=== PATIENT | female | born 1980 | race Caucasian/White ===

== ENCOUNTER → 2021-01-14 11:08 | Outpatient (BNVA) | payer OTHER, SELFPAY | PROVIDERS: Family Provider Family Medicine; PCP Family Medicine | DX: Z20.822 Contact with and (suspected) exposure to COVID-19 (principal) | CPT/HCPCS: 87635 ==

== ENCOUNTER 2022-07-20 08:06 | Day surgery (SDC) | payer BC, SELFPAY ==
[2022-07-20] VITALS (15 sets, daily range): BP systolic 85–158; BP diastolic 44–85; PULSE 65–100; RESP 13–18; TEMP 36.1–36.6; O2SAT 95–99; BMI 22.9; BMI 23.3
--- NOTE | 2022-07-20 08:30 | ED_ITS ---
Documented by User: MANI Machuca 07/20/22 10:11 HPI - Abdominal Pain General: Chief Complaint: Abdominal Pain Stated Complaint: URQ abd pain Time Seen by Provider: 07/20/22 08:23 Source: patient Mode of arrival: ambulatory Limitations: no limitations History of Present Illness: Patient is a nice 42-year-old female presents to ED today with a complaint of abdominal pain. Patient states she first began noticing discomforts 5 to 6 days ago and states pain was fairly intermittent but states over that course pain has progressively worsened and is now constant. She states yesterday evening pain became unbearable. She describes sensations of nausea but has not had any episodes of emesis. She is not having diarrhea. Admittedly had not had a bowel movement in a few days but did have one this morning that she reports was normal. She states she has been able to eat and drink adequately and states this does not seem to aggravate her symptoms. No fevers. No urinary complaints or flank pains. MD elicited complaint: abdominal pain Pertinent past history: none Onset (ago): day(s) Pain Consistency: constant Location: Periumbilical and RLQ Severity: severe Quality: sharp Radiation: none Migration to: no migration Exacerbating factors: nothing Relieving factors: nothing Associated Symptoms: Reports nausea and other (body aches); Denies change in bowel habits, dysuria, fever(s), hematemesis and vomiting Related Data: Patient : No Review of Systems Const: Reports: body aches; Denies: fever(s), fatigue or malaise Card: Denies: chest pain Resp: Denies: dyspnea GI: Reports: abdominal pain, nausea and other (body aches); Denies: vomiting, hematemesis or change in bowel habits : Denies: flank pain, difficulty voiding, dysuria, urinary frequency or urinary urgency Musc: Denies: neck pain, back pain, extremity pain or joint pain Skin/Breast: Denies: rash Neuro: Denies: headache(s) or dizziness Physical Exam Const: COMMON NORMALS: average body habitus, patient oriented x3, no limitations, healthy appearing, alert and well nourished GENERAL APPEARANCE: cooperative and ill appearing (appears uncomfortable secondary to pain) HENMT: COMMON NORMALS: normocephalic and atraumatic HEAD & SCALP: normal to inspection, normocephalic and atraumatic Chest: COMMONS NORMALS: normal inspection of the chest and normal palpation of entire chest wall Resp: COMMON NORMALS: normal respiratory effort and clear to auscultation bilaterally AUSCULTATION: clear to auscultation bilaterally Cardio: COMMON NORMALS: regular rate and regular rhythm RATE: regular rate RHYTHM: regular rhythm GI: COMMON NORMALS: Normal to inspection, nondistended, normoactive bowel sounds present, Soft to palpation, No hepatosplenomegaly present and no masses INSPECTION: Yes normal to inspection AUSCULTATION: Yes normoactive bowel sounds PALPATION: Yes Soft to palpation, Yes Tenderness to palpation present (GI) (suprapubic/RLQ), Yes Guarding due to palpation present (GI) (RLQ), No Rigid due to palpation and Yes No hepatosplenomegaly present : COMMON NORMALS: Yes no CVA tenderness BLADDER/KIDNEY EXAM: Yes no CVA tenderness Back/Pelvis: COMMON NORMALS: no CVA tenderness Extremity: COMMON NORMALS: normal to inspection GENERAL: Yes normal exam except as noted Neuro: BRODIE COMA SCALE: document GCS findings Brodie coma scale eye opening: Spontaneous [place] coma scale verbal response: Orientated [place] coma scale motor response: Obey commands Bro[place] coma scale total score: 15 COMMON NORMALS: patient oriented x3 SENSORIUM/ORIENTATION: Yes alert Skin: COMMON NORMALS: no rashes or lesions noted GENERAL SKIN EXAM: no rashes or lesions noted Course Consultations: Consultation #1: Dr. Acosta-recommends admit to obs under his service Vital Signs: Vital signs: Vital Signs Temperature 97.9 F 07/20/22 08:21 Pulse Rate 77 07/20/22 09:12 Respiratory Rate 16 07/20/22 08:59 Blood Pressure 119/69 07/20/22 09:12 Pulse Oximetry 99 07/20/22 09:12 Oxygen Delivery Me thod Room Air 07/20/22 09:12 MDM - Abdominal Pain Medical Decision Making Patient is a nice 42-year-old female here for progressively worsening lower abdominal pains with nausea. Her vital signs are stable. Blood work shows a white count of 11.7. Remainder of labs are fairly unremarkable. CT scan showing acute appendicitis without rupture. I spoke to Dr. Acosta who recommends admit to obs under his service. IV Zosyn has been initiated. Dr. Membreno aware of patient and will write admit orders. Lab Data 07/20/22 08:45 07/20/22 08:45 Labs/Radiology: Radiology Impressions Abdomen/Pelvis CT 07/20/22 08:35 IMPRESSION: 1. Acute appendicitis without rupture. Significant dilatation of the appendix to 1.5 cm. 2. Small amount of free fluid in the pelvis. May be reactive or physiologic. Notified MANI Machuca at 07/20/2022 9:53 AM. Not available. Laboratory Results WBC 11.7 10^3/uL (4.0-10.0) H 07/20/22 08:45 RBC 4.92 10^6/uL (4.1-5.3) 07/20/22 08:45 Hgb 14.4 g/dL (11.5-15.3) 07/20/22 08:45 Hct 43.4 % (37.0-47.0) 07/20/22 08:45 MCV 88.2 fl (81-99) 07/20/22 08:45 MCH 29.3 pg (28.0-34.0) 07/20/22 08:45 MCHC 33.2 g/dL (30.0-36.0) 07/20/22 08:45 RDW 12.9 % (12.1-15.1) 07/20/22 08:45 Plt Count 294 10^3/cmm (130-400) 07/20/22 08:45 MPV 10.8 fL (7.4-10.4) H 07/20/22 08:45 Neut % (Auto) 82.7 % 07/20/22 08:45 Lymph % (Auto) 10.8 % 07/20/22 08:45 [place] % (Auto) 5.1 % 07/20/22 08:45 Eos % (Auto) 0.9 % 07/20/22 08:45 Baso % (Auto) 0.2 % 07/20/22 08:45 Neut # (Auto) 9.68 10^3/uL (1.8-7.7) H 07/20/22 08:45 Lymph # (Auto) 1.3 10^3/uL (0.8-4.8) 07/20/22 08:45 [place] # (Auto) 0.6 10^3/uL (0.2-0.9) 07/20/22 08:45 Eos # (Auto) 0.1 10^3/uL (0.0-0.8) 07/20/22 08:45 Baso # (Auto) 0.0 10^3/uL (0.0-0.1) 07/20/22 08:45 Nucleated RBC % (auto) 0 % 07/20/22 08:45 Nucleated RBCs # 0.0 /100WBC 07/20/22 08:45 Sodium 134 mmol/L (136-145) L 07/20/22 08:45 Potassium 4.3 mmol/L (3.5-5.1) 07/20/22 08:45 Chloride 100 mmol/L (98-107) 07/20/22 08:45 Carbon Dioxide 22 mmol/L (22-29) 07/20/22 08:45 Anion Gap 16.3 (5-19) 07/20/22 08:45 BUN 7 mg/dL (6-20) 07/20/22 08:45 Creatinine 0.7 mg/dL (0.5-0.9) 07/20/22 08:45 GFR Calculation 92.2 mL/min (90-130) 07/20/22 08:45 Glucose 97 mg/dL (65-115) 07/20/22 08:45 Calculated Osmolality 276 mOsm/kg (285-295) L 07/20/22 08:45 Calcium 8.7 mg/dL (8.5-10.5) 07/20/22 08:45 Total Bilirubin 0.8 mg/dL (0.15-1.2) 07/20/22 08:45 AST 13 U/L (0-32) 07/20/22 08:45 ALT 11 U/L (0-33) 07/20/22 08:45 Alkaline Phosphatase 51 U/L (35-105) 07/20/22 08:45 Total Protein 7.4 g/dL (6.6-8.7) 07/20/22 08:45 Albumin 4.2 g/dL (3.5-5.2) 07/20/22 08:45 Globulin 3.2 g/dL (1.3-4.6) 07/20/22 08:45 Lipase 28 U/L (13-60) 07/20/22 08:45 HCG, Qual Negative (Negative) 07/20/22 08:45 Urine Color Yellow (Yellow) 07/20/22 08:40 Urine Appearance Clear (CLEAR) 07/20/22 08:40 Urine pH 6 (5-7) 07/20/22 08:40 Ur Specific [place] 1.025 (1.005-1.030) 07/20/22 08:40 Urine Protein Neg (Negative) 07/20/22 08:40 Urine Glucose (UA) Norm (Normal) 07/20/22 08:40 Urine Ketones Negative (Negative) 07/20/22 08:40 Urine Blood 3+ (Negative) H 07/20/22 08:40 Urine Nitrate Negative (Negative) 07/20/22 08:40 Urine Bilirubin Neg (Negative) 07/20/22 08:40 Urine Urobilinogen Norm mg/dL (Negative) 07/20/22 08:40 Ur Leukocyte Esterase Negative (Negative) 07/20/22 08:40 Urine RBC 5-10 /hpf (0-2) H 07/20/22 08:40 Urine WBC Rare /hpf (0-5) 07/20/22 08:40 Ur Squamous Epith Cells 5-10 /hpf (0-5) H 07/20/22 08:40 Amorphous Sediment Not Reportable 07/20/22 08:40 Urine Bacteria 1+ /hpf (NONE) H 07/20/22 08:40 Discharge Plan Discharge Patient Disposition: Placed in Observation Clinical Impression: Acute appendicitis Qualifiers: Acute appendicitis type: with localized peritonitis Appendicitis gangrene presence: without gangrene Appendicitis perforation presence: without perforation Appendicitis abscess presence: without abscess Qualified Code(s): K35.30 - Acute appendicitis with localized peritonitis, without perforation or gangrene Coding Level of Care Code ED Mechanical Inspector for Chg Fwd Documented by User: Damian Membreno DO 07/20/22 10:25 HPI - Abdominal Pain General: Chief Complaint: Abdominal Pain Stated Complaint: URQ abd pain Time Seen by Provider: 07/20/22 08:23 Physical Exam Neuro: BRODIE COMA SCALE: document GCS findings [place] coma scale total score: 15 Course Vital Signs: Vital signs: Vital Signs Temperature 97.9 F 07/20/22 08:21 Pulse Rate 77 07/20/22 09:12 Respiratory Rate 16 07/20/22 08:59 Blood Pressure 119/69 07/20/22 09:12 Pulse Oximetry 99 07/20/22 09:12 Oxygen Delivery Me thod Room Air 07/20/22 09:12 MDM - Abdominal Pain Medical Decision Making Patient is a nice 42-year-old female here for progressively worsening lower abdominal pains with nausea. Her vital signs are stable. Blood work shows a white count of 11.7. Remainder of labs are fairly unremarkable. CT scan showing acute appendicitis without rupture. I spoke to Dr. Acosta who recommends admit to obs under his service. IV Zosyn has been initiated. Dr. Membreno aware of patient and will write admit orders. Chart reviewed and patient discussed with midlevel. Agree with assessment and plan. Medical Records I reviewed the patient's medical records. Lab Data I reviewed the patient's lab results. 07/20/22 08:45 07/20/22 08:45 Labs/Radiology: Radiology Impressions Abdomen/Pelvis CT 07/20/22 08:35 IMPRESSION: 1. Acute appendicitis without rupture. Significant dilatation of the appendix to 1.5 cm. 2. Small amount of free fluid in the pelvis. May be reactive or physiologic. Notified MANI Machuca at 07/20/2022 9:53 AM. Not available. Laboratory Results WBC 11.7 10^3/uL (4.0-10.0) H 07/20/22 08:45 RBC 4.92 10^6/uL (4.1-5.3) 07/20/22 08:45 Hgb 14.4 g/dL (11.5-15.3) 07/20/22 08:45 Hct 43.4 % (37.0-47.0) 07/20/22 08:45 MCV 88.2 fl (81-99) 07/20/22 08:45 MCH 29.3 pg (28.0-34.0) 07/20/22 08:45 MCHC 33.2 g/dL (30.0-36.0) 07/20/22 08:45 RDW 12.9 % (12.1-15.1) 07/20/22 08:45 Plt Count 294 10^3/cmm (130-400) 07/20/22 08:45 MPV 10.8 fL (7.4-10.4) H 07/20/22 08:45 Neut % (Auto) 82.7 % 07/20/22 08:45 Lymph % (Auto) 10.8 % 07/20/22 08:45 [place] % (Auto) 5.1 % 07/20/22 08:45 Eos % (Auto) 0.9 % 07/20/22 08:45 Baso % (Auto) 0.2 % 07/20/22 08:45 Neut # (Auto) 9.68 10^3/uL (1.8-7.7) H 07/20/22 08:45 Lymph # (Auto) 1.3 10^3/uL (0.8-4.8) 07/20/22 08:45 [place] # (Auto) 0.6 10^3/uL (0.2-0.9) 07/20/22 08:45 Eos # (Auto) 0.1 10^3/uL (0.0-0.8) 07/20/22 08:45 Baso # (Auto) 0.0 10^3/uL (0.0-0.1) 07/20/22 08:45 Nucleated RBC % (auto) 0 % 07/20/22 08:45 Nucleated RBCs # 0.0 /100WBC 07/20/22 08:45 Sodium 134 mmol/L (136-145) L 07/20/22 08:45 Potassium 4.3 mmol/L (3.5-5.1) 07/20/22 08:45 Chloride 100 mmol/L (98-107) 07/20/22 08:45 Carbon Dioxide 22 mmol/L (22-29) 07/20/22 08:45 Anion Gap 16.3 (5-19) 07/20/22 08:45 BUN 7 mg/dL (6-20) 07/20/22 08:45 Creatinine 0.7 mg/dL (0.5-0.9) 07/20/22 08:45 GFR Calculation 92.2 mL/min (90-130) 07/20/22 08:45 Glucose 97 mg/dL (65-115) 07/20/22 08:45 Calculated Osmolality 276 mOsm/kg (285-295) L 07/20/22 08:45 Calcium 8.7 mg/dL (8.5-10.5) 07/20/22 08:45 Total Bilirubin 0.8 mg/dL (0.15-1.2) 07/20/22 08:45 AST 13 U/L (0-32) 07/20/22 08:45 ALT 11 U/L (0-33) 07/20/22 08:45 Alkaline Phosphatase 51 U/L (35-105) 07/20/22 08:45 Total Protein 7.4 g/dL (6.6-8.7) 07/20/22 08:45 Albumin 4.2 g/dL (3.5-5.2) 07/20/22 08:45 Globulin 3.2 g/dL (1.3-4.6) 07/20/22 08:45 Lipase 28 U/L (13-60) 07/20/22 08:45 HCG, Qual Negative (Negative) 07/20/22 08:45 Urine Color Yellow (Yellow) 07/20/22 08:40 Urine Appearance Clear (CLEAR) 07/20/22 08:40 Urine pH 6 (5-7) 07/20/22 08:40 Ur Specific [place] 1.025 (1.005-1.030) 07/20/22 08:40 Urine Protein Neg (Negative) 07/20/22 08:40 Urine Glucose (UA) Norm (Normal) 07/20/22 08:40 Urine Ketones Negative (Negative) 07/20/22 08:40 Urine Blood 3+ (Negative) H 07/20/22 08:40 Urine Nitrate Negative (Negative) 07/20/22 08:40 Urine Bilirubin Neg (Negative) 07/20/22 08:40 Urine Urobilinogen Norm mg/dL (Negative) 07/20/22 08:40 Ur Leukocyte Esterase Negative (Negative) 07/20/22 08:40 Urine RBC 5-10 /hpf (0-2) H 07/20/22 08:40 Urine WBC Rare /hpf (0-5) 07/20/22 08:40 Ur Squamous Epith Cells 5-10 /hpf (0-5) H 07/20/22 08:40 Amorphous Sediment Not Reportable 07/20/22 08:40 Urine Bacteria 1+ /hpf (NONE) H 07/20/22 08:40 Discharge Plan Discharge Patient Disposition: Placed in Observation Clinical Impression: Acute appendicitis Qualifiers: Acute appendicitis type: with localized peritonitis Appendicitis gangrene presence: without gangrene Appendicitis perforation presence: without perforation Appendicitis abscess presence: without abscess Qualified Code(s): K35.30 - Acute appendicitis with localized peritonitis, without perforation or gangrene Coding Level of Care Code ED Mechanical Inspector for Francie Tapia
--- NOTE | 2022-07-20 08:35 | CT_ITS ---
WS: [id number] CT ABDOMEN AND PELVIS WITH CONTRAST HISTORY: suprapubic/RLQ abdominal pain, nausea TECHNIQUE: Imaging performed of the abdomen and pelvis with IV contrast. Single phase imaging of the abdomen. Coronal and sagittal reformats are submitted. All CT scans at [facility] use at [address] one of these dose optimization techniques: automated exposure control; mA and/or kV adjustment per patient size (includes targeted exams where dose is matched to clinical indication); or iterative re construction. IV CONTRAST: Omnipaque 350; 100 mL IV. Oral contrast: Yes. DLP: 430.22 mGy.cm COMPARISON: None available. Lower thorax: Lung bases are clear. Heart is normal size. No hiatal hernia. Liver/biliary system: Normal size with no intrahepatic dilatation. Gallbladder: Normal. No gallstones or wall thickening. No pericholecystic fluid. Pancreas: Normal size pancreas and pancreatic duct. No adjacent inflammation. Spleen: Normal size spleen with several granulomata. Adrenal glands: Normal. Right kidney: Normal size RIGHT kidney. Scattered too small to characterize hypodensities. No obstruc tion. Left kidney: Normal size kidney. Scattered too small to characterize hypodensities. No obstruction. Aorta: Normal. Lymphadenopathy: None. Free fluid: Small amount of free fluid in the cul-de-sac and pelvis. GI tract: Inflammatory process in the RIGHT lower quadrant. Appendix is dilated with hyperemia measur ing 1.5 cm in diameter. No rupture at this time. Small amount of inflammation extends into the base o f the appendix and cecum. There are a few scattered diverticula in the distal colon. Abdominal wall: Fat containing umbilical hernia. Pelvis: Physiologic free fluid. Midline uterus is normal. Bones: Unremarkable. CT/CT abdomen pelvis w con* [id number] IMPRESSION: 1. Acute appendicitis without rupture. Significant dilatation of the appendix to 1.5 cm. 2. Small amount of free fluid in the pelvis. May be reactive or physiologic. Notified MANI Machuca at 07/20/2022 9:53 AM. Not available.
[2022-07-20 08:55] LABS: Basophils % 0.2 %; Eosinophils # 0.1 10^3/uL (0.0-0.8); Eosinophils % 0.9 %; Hematocrit 43.4 % (37.0-47.0); Hemoglobin 14.4 g/dL (11.5-15.3); Lymphocytes # 1.3 10^3/uL (0.8-4.8); Lymphocytes % 10.8 %; Mean Corpuscular HGB Conc 33.2 g/dL (30.0-36.0); Mean Corpuscular Hemoglobin 29.3 pg (28.0-34.0); Mean Corpuscular Volume 88.2 fl (81-99); Mean Platelet Volume 10.8 fL (7.4-10.4); Monocytes # 0.6 10^3/uL (0.2-0.9); Monocytes % 5.1 %; Neutrophils # 9.68 10^3/uL (1.8-7.7); Neutrophils % 82.7 %; Nucleated Red Blood Cells % 0 %; Platelet Count 294 10^3/cmm (130-400); Red Blood Count 4.92 10^6/uL (4.1-5.3); Red Cell Distribution Width 12.9 % (12.1-15.1); White Blood Count 11.7 10^3/uL (4.0-10.0)
[2022-07-20] MEDS: sodium chloride 0.9% 1,000 ML 999 ML IV (08:58)
[2022-07-20] MEDS: ondansetron 2 mg/ML SDV 2 mL 4 MG IVP (08:59)
[2022-07-20] MEDS: morphine 4 mg/mL SDV 1 mL IVP (08:59)
[2022-07-20 09:06] LABS: HCG, Serum Qual Negative (Negative)
[2022-07-20 09:13] LABS: Alanine Aminotransferase 11 U/L (0-33); Albumin Level 4.2 g/dL (3.5-5.2); Alkaline Phosphatase 51 U/L (35-105); Anion Gap 16.3 (5-19); Aspartate Amino Transferase 13 U/L (0-32); Blood Urea Nitrogen 7 mg/dL (6-20); Calcium 8.7 mg/dL (8.5-10.5); Carbon Dioxide 22 mmol/L (22-29); Chloride 100 mmol/L (98-107); Creatinine Clr Calc Pharmacy 99.5127; Globulin 3.2 g/dL (1.3-4.6); Glomerular Filtration Rate 92.2 mL/min (90-130); Glucose 97 mg/dL (65-115); Lipase 28 U/L (13-60); Osmolality Calculated 276 mOsm/kg (285-295); Potassium 4.3 mmol/L (3.5-5.1); Sodium 134 mmol/L (136-145); Total Bilirubin 0.8 mg/dL (0.15-1.2); Total Protein 7.4 g/dL (6.6-8.7)
[2022-07-20 09:14] LABS: Bilirubin Urine Neg (Negative); Blood Urine 3+ (Negative); Glucose Urine UA Norm (Normal); Ketones Urine Negative (Negative); Leukocyte Esterase Urine Negative (Negative); Nitrate Urine Negative (Negative); Protein Urine Neg (Negative); Specific Gravity, Urine 1.025 (1.005-1.030); Urine Appearance Clear (CLEAR); Urine Color Yellow (Yellow); Urobilinogen Urine Norm (Negative); pH Urine 6 (5-7)
[2022-07-20 09:15] LABS: Add Urine Culture? No; Add Urine Microscopic? YES; Bacteria Urine 1+ /hpf; WBC Urine RARE /hpf (0-5)
[2022-07-20] MEDS: iohexol 350 mg/mL 500 mL Btl (per mL) IV (09:36)
--- NOTE | 2022-07-20 10:28 | PC.NURSE ---
PT WAS ORDERED MORPHINE 4MG FOR PAIN CONTROL. WHILE PUSHING THE MORPHINE, PT STATED THAT SHE FELT LIKE SHE DID NOT NEED ANYMORE. I CLARIFIED THAT THE PATIENT DID NOT WANT THE REST OF THE MORPHINE. PT WAS GIVEN 2MG MORPHINE AND THE REST WAS WASTED IN THE SHARPS CONTAINER BY THE MED PREP AREA.
[2022-07-20] MEDS: piperacillin-tazobactam 3.375 GM in sodium chloride 0.9% (plus) 50 ML IV (10:44)
[2022-07-20] MEDS: sodium chloride 0.9% 1,000 ML 30 ML IV (10:45)
[2022-07-20] MEDS: scopolamine 1.5 Patch 1 PATCH TRANSDERMA (10:46)
--- NOTE | 2022-07-20 11:03 | P.ANESASSM_ITS ---
Pre-Anesthetic Assessment Height/Weight: Height 1.65 m Weight 63.503 kg Temp Pulse Resp BP Pulse Ox O2 Del Method 97 F L 77 18 134/84 99 Room Air 07/20/22 10:36 07/20/22 10:36 07/20/22 10:36 07/20/22 10:36 07/20/22 10:36 07/20/22 10:36 Operation Date: 07/20/22 14:50 Proposed Procedures p Laparoscopic Appendectomy(Not Applicable) - Deshaun Acosta DO Familial anesthetic complications: none Was Beta Shane taken within 24 hours: N/A Was Clonidine taken within 24 hours: N/A Last intake: Intake Last Liquid Date 07/20/22 Last Liquid Time 07:45 Last Solid Date 07/19/22 Last Solid Time 17:30 Social Tobacco and No alcohol Exam alert, oriented x 3 and regular rate & rhythm Airway Submandibular: within normal limits Cervical ROM: within normal limits Mallampati: Class II Dentition: chipped Pulmonary Chronic Obstructive Pulmonary Disease GI acute appe Anesthetic Plan ASA status: 2 Anesthesia: General Medications/Allergies Home Medications Medication Instructions Recorded Confirmed Last Taken Type No Known Home Medications 01/14/21 07/20/22 Unknown History Allergies Allergy/AdvReac Type Severity Reaction Status Date / Time No Known Allergies Allergy Verified 07/20/22 10:33 Current Medications Generic Name Dose Route Start Last Admin Trade Name Freq PRN Reason Stop Dose Admin Sodium Chloride 1,000 mls @ 30 mls/hr 07/20/22 10:45 07/20/22 10:45 Sodium Chloride 0.9% IV 07/21/22 10:44 30 mls/hr .Q24H QUAN Administration Data Anesthesia 07/20/22 08:45 07/20/22 08:45 Short CBC 07/20/22 Range/Units 08:45 WBC 11.7 H (4.0-10.0) 10^3/uL Hgb 14.4 (11.5-15.3) g/dL Hct 43.4 (37.0-47.0) % MCV 88.2 (81-99) fl Plt Count 294 (130-400) 10^3/cmm Neut % (Auto) 82.7 % Neut # (Auto) 9.68 H (1.8-7.7) 10^3/uL BMP 04/17/23 08:45 Sodium 134 L Potassium 4.3 Chloride 100 Carbon Dioxide 22 BUN 7 Creatinine 0.7 Glucose 97 Calcium 8.7 Liver Function 07/20/22 Range/Units 08:45 Total Bilirubin 0.8 (0.15-1.2) mg/dL AST 13 (0-32) U/L ALT 11 (0-33) U/L Alkaline Phosphatase 51 (35-105) U/L Albumin 4.2 (3.5-5.2) g/dL Urine 07/20/22 Range/Units 08:40 Urine Color Yellow (Yellow) Urine Appearance Clear (CLEAR) Urine pH 6 (5-7) Ur Specific [place] 1.025 (1.005-1.030) Urine Protein Neg (Negative) Urine Glucose (UA) Norm (Normal) Urine Ketones Negative (Negative) Urine Nitrate Negative (Negative) Urine Bilirubin Neg (Negative) Ur Leukocyte Esterase Negative (Negative) Urine RBC 5-10 H (0-2) /hpf Urine WBC Rare (0-5) /hpf Cardiac Studies: No Data to Display
--- NOTE | 2022-07-20 11:11 | P.HP_ITS ---
Providers/Chief Complaint Primary Care Provider: Burton Blake MD Chief Complaint: URQ abd pain History of Present Illness Lyly Byrne is a 42 year old female who presents to the hospital with 1 week history of right lower quadrant abdominal pain. She reports that the pain became sharp and severe last night. Palpation makes pain worse. Nothing makes pain better. Pain does not radiate. She reports nausea but denies any emesis. Denies any diarrhea and/or constipation. CT shows a dilated appendix with appendicitis. Review of Systems General: Reports: 10 or more systems reviewed and unremarkable except in HPI and below Medications/Allergies Home Medications Medication Instructions Recorded Confirmed Last Taken Type No Known Home Medications 01/14/21 07/20/22 Unknown History Allergies Allergy/AdvReac Type Severity Reaction Status Date / Time No Known Allergies Allergy Verified 07/20/22 10:33 PFSH Acute PFSH: Surgical History History of tubal ligation Vitals/I&O/Wt Last Vital Signs Temp 97 F L 07/20/22 10:36 Pulse 77 07/20/22 10:36 Resp 18 07/20/22 10:36 BP 134/84 07/20/22 10:36 Pulse Ox 99 07/20/22 10:36 O2 Del Method Room Air 07/20/22 10:36 Weight last 48 hrs Weight 140 lb Weight 140 lb Physical Exam Narrative: General : Patient is well developed , no acute distress, oriented x3 Head : Normal cephalic, a-traumatic. Ears : Pinnae and external canal are normal. Hearing is normal. Eyes : PERRLA, Sclera and injection are normal. No conjunctival discharge. Nose : Mucous membranes are without erythema. Throat : buccal mucosa is normal, gums are without significant recession or hypertrophy. Lungs : Equal chest rise bilaterally, no use of accessory muscles, trachea is midline. Cor : Rate and rhythm are normal. Abdomen : Soft, ND, tender to palpation right lower quadrant, negative Rovsing's, no g/r/m Extremities : No edema, no cyanosis or clubbing, dorsalis pedis pulses are present bilaterally, non-tender to palpation of calves. Upper extremities are normal bilaterally. Back : non-tender to palpation, no CVA tenderness. Neuro : CN II - XII intact, Upper and lower extremities have equal and full strength okay thank you Data 07/20/22 08:45 07/20/22 08:45 A&P Assessment and plan (1) Acute appendicitis: Qualifiers: Acute appendicitis type: with localized peritonitis Appendicitis abscess presence: without abscess Appendicitis gangrene presence: without gangrene Appendicitis perforation presence: without perforation Qualified Code(s): K35.30 - Acute appendicitis with localized peritonitis, without perfora tion or gangrene Plan Laparoscopic Appendectomy The risks and benefits of the procedure, including but not limited to, bleeding, infection, scar, numbness, pain, damage to surrounding structures, conversion to an open procedure, were explained to the patient. He is understanding of the risks and wishes to proceed. Attestations Medical Necessity Statement*: Patient will require at least 1 night in the hospital for IV antibiotics and recovery after laparoscopic appendectomy Coding Level of Care Code Acute Code for [facility] Diagnoses Acute appendicitis K35.30 Acute appendicitis type: with localized peritonitis Appendicitis abscess presence: without abscess Appendicitis gangrene presence: without gangrene Appendicitis perforation presence: without perforation
--- NOTE | 2022-07-20 12:09 | P.OP_ITS ---
Operative Report Date of procedure: July 20, 2022 Pre-op diagnosis: Acute appendicitis Post-op diagnosis: same Procedure done: Laparoscopic appendectomy Implants: None Specimens removed/disposition: Appendix Surgeon: Dr. Deshaun Acosta DO Anesthesia: General Estimated blood loss (mL): 5 Complications: None apparent Brief History: This is a very pleasant 42-year-old female who presents to the ER with acute appendicitis. Laparoscopic appendectomy was indicated. The risk and benefits were explained and documented. Procedure: Patient was wheeled into the operative room and placed on the OR table in a supine position. Abdomen was inspected prepped and draped in usual sterile fashion. Time-out was performed and all present were in agreement. A 15 blade scalp was used to make a stab incision in the left upper quadrant and intra- abdominal insufflation was achieved using a Veress needle. After localizing the tissue incisions were made and a 12 millimeter trocar was placed into the umbilicus as well as a 5mm in the right lower quadrant and a 5 mm in the left lower quadrant . The appendix was identified and was inflamed. I used the Voyant to ligate the mesoappendix at the base. I then used 2 PDS endo-loops to snare the base of the appendix. I then used the Voyant to ligate the appendix distally. The appendix was removed from the abdomen using an Endo-Catch bag through the umbilical incision. I examined the abdomen and no further pathol ogy was identified. Hemostasis was noted. I then closed the umbilical site with a Marcelino-Marco and 0 Vicryl suture in a figure of 8 fashion. All ports removed. Skin was washed and dried. Incisions were closed with 4 O Vicryl in a subcuticular interrupted fashion. Skin glue was applied. Patient tolerated the procedure well.
--- NOTE | 2022-07-20 12:12 | P.DS_ITS ---
Discharge Providers Date of Discharge: July 20, 2022 Attending Provider at Discharge: Deshaun Acosta DO Primary Care Provider: Burton Blake MD Diagnoses at Discharge Discharge Diagnosis (1) Acute appendicitis: Status: Acute Qualifiers: Acute appendicitis type: with localized peritonitis Appendicitis abscess presence: without abscess Appendicitis gangrene presence: without gangrene Appendicitis perforation presence: without perforation Qualified Code(s): K35.30 - Acute appendicitis with localized peritonitis, without perforation or gangrene Reason for Visit Reason for Visit: URQ abd pain Hospital Course Hospital Course Is a very pleasant 42-year-old female who presented to the emergency room with acute appendicitis. Laparoscopic appendectomy was performed and patient was discharged home from the PACU. Physical Exam Narrative: General : Patient is well developed , no acute distress, oriented x3 Head : Normal cephalic, a-traumatic. Ears : Pinnae and external canal are normal. Hearing is normal. Eyes : PERRLA, Sclera and injection are normal. No conjunctival discharge. Nose : Mucous membranes are without erythema. Throat : buccal mucosa is normal, gums are without significant recession or hypertrophy. Lungs : Equal chest rise bilaterally, no use of accessory muscles, trachea is midline. Cor : Rate and rhythm are normal. Abdomen : Soft, ND, appropriately tender to palpation, no g/r/m Incisions intact without erythema or exudate Extremities : No edema, no cyanosis or clubbing, dorsalis pedis pulses are present bilaterally, non-tender to palpation of calves. Upper extremities are normal bilaterally. Back : non-tender to palpation, no CVA tenderness. Neuro : CN II - XII intact, Upper and lower extremities have equal and full strength Discharge Data Studies Completed and Pending Completed Studies During Hospitalization Category Date Time Status CT abdomen pelvis w con* [id number] Urgent Cat Scan 07/20/22 08:35 Completed Radiology Impressions Abdomen/Pelvis CT 07/20/22 08:35 IMPRESSION: 1. Acute appendicitis without rupture. Significant dilatation of the appendix to 1.5 cm. 2. Small amount of free fluid in the pelvis. May be reactive or physiologic. Notified MANI Machuca at 07/20/2022 9:53 AM. Not available. Laboratory Results WBC 11.7 10^3/uL (4.0-10.0) H 07/20/22 08:45 RBC 4.92 10^6/uL (4.1-5.3) 07/20/22 08:45 Hgb 14.4 g/dL (11.5-15.3) 07/20/22 08:45 Hct 43.4 % (37.0-47.0) 07/20/22 08:45 MCV 88.2 fl (81-99) 07/20/22 08:45 MCH 29.3 pg (28.0-34.0) 07/20/22 08:45 MCHC 33.2 g/dL (30.0-36.0) 07/20/22 08:45 RDW 12.9 % (12.1-15.1) 07/20/22 08:45 Plt Count 294 10^3/cmm (130-400) 07/20/22 08:45 MPV 10.8 fL (7.4-10.4) H 07/20/22 08:45 Neut % (Auto) 82.7 % 07/20/22 08:45 Lymph % (Auto) 10.8 % 07/20/22 08:45 [place] % (Auto) 5.1 % 07/20/22 08:45 Eos % (Auto) 0.9 % 07/20/22 08:45 Baso % (Auto) 0.2 % 07/20/22 08:45 Neut # (Auto) 9.68 10^3/uL (1.8-7.7) H 07/20/22 08:45 Lymph # (Auto) 1.3 10^3/uL (0.8-4.8) 07/20/22 08:45 [place] # (Auto) 0.6 10^3/uL (0.2-0.9) 07/20/22 08:45 Eos # (Auto) 0.1 10^3/uL (0.0-0.8) 07/20/22 08:45 Baso # (Auto) 0.0 10^3/uL (0.0-0.1) 07/20/22 08:45 Nucleated RBC % (auto) 0 % 07/20/22 08:45 Nucleated RBCs # 0.0 /100WBC 07/20/22 08:45 Sodium 134 mmol/L (136-145) L 07/20/22 08:45 Potassium 4.3 mmol/L (3.5-5.1) 07/20/22 08:45 Chloride 100 mmol/L (98-107) 07/20/22 08:45 Carbon Dioxide 22 mmol/L (22-29) 07/20/22 08:45 Anion Gap 16.3 (5-19) 07/20/22 08:45 BUN 7 mg/dL (6-20) 07/20/22 08:45 Creatinine 0.7 mg/dL (0.5-0.9) 07/20/22 08:45 GFR Calculation 92.2 mL/min (90-130) 07/20/22 08:45 Glucose 97 mg/dL (65-115) 07/20/22 08:45 Calculated Osmolality 276 mOsm/kg (285-295) L 07/20/22 08:45 Calcium 8.7 mg/dL (8.5-10.5) 07/20/22 08:45 Total Bilirubin 0.8 mg/dL (0.15-1.2) 07/20/22 08:45 AST 13 U/L (0-32) 07/20/22 08:45 ALT 11 U/L (0-33) 07/20/22 08:45 Alkaline Phosphatase 51 U/L (35-105) 07/20/22 08:45 Total Protein 7.4 g/dL (6.6-8.7) 07/20/22 08:45 Albumin 4.2 g/dL (3.5-5.2) 07/20/22 08:45 Globulin 3.2 g/dL (1.3-4.6) 07/20/22 08:45 Lipase 28 U/L (13-60) 07/20/22 08:45 HCG, Qual Negative (Negative) 07/20/22 08:45 Urine Color Yellow (Yellow) 07/20/22 08:40 Urine Appearance Clear (CLEAR) 07/20/22 08:40 Urine pH 6 (5-7) 07/20/22 08:40 Ur Specific [place] 1.025 (1.005-1.030) 07/20/22 08:40 Urine Protein Neg (Negative) 07/20/22 08:40 Urine Glucose (UA) Norm (Normal) 07/20/22 08:40 Urine Ketones Negative (Negative) 07/20/22 08:40 Urine Blood 3+ (Negative) H 07/20/22 08:40 Urine Nitrate Negative (Negative) 07/20/22 08:40 Urine Bilirubin Neg (Negative) 07/20/22 08:40 Urine Urobilinogen Norm mg/dL (Negative) 07/20/22 08:40 Ur Leukocyte Esterase Negative (Negative) 07/20/22 08:40 Urine RBC 5-10 /hpf (0-2) H 07/20/22 08:40 Urine WBC Rare /hpf (0-5) 07/20/22 08:40 Ur Squamous Epith Cells 5-10 /hpf (0-5) H 07/20/22 08:40 Amorphous Sediment Not Reportable 07/20/22 08:40 Urine Bacteria 1+ /hpf (NONE) H 07/20/22 08:40 Procedures Performed Laparoscopic appendectomy Vitals Last Vital Signs Temp 97 F L 07/20/22 10:36 Pulse 77 07/20/22 10:36 Resp 18 07/20/22 10:36 BP 134/84 07/20/22 10:36 Pulse Ox 99 07/20/22 10:36 O2 Del Method Room Air 07/20/22 10:36 Discharge Plan Discharge Patient Disposition: Home Condition: Stable Prescriptions: New amoxicillin-pot clavulanate 875-125 mg tablet 1 tab PO BID Qty: 20 0RF hydrocodone-acetaminophen 5-325 mg tablet 1 tab PO Q6H PRN (Reason: pain) Qty: 20 0RF DOK 100 mg capsule 100 mg PO BID Qty: 14 0RF Discharge Orders: Discharge Order (Routine); Ordered 07/20/22 Ordered By: Deshaun Acosta Referrals: Burton Blake MD [Primary Care Provider] - 4-7 days Deshaun Acosta DO [Physician] - 2 weeks Discharge Diet: Advance as tolerated Discharge Activity: Resume usual activity Activity Restrictions/Additional Instructions: Do not soak incisions underwater for 2 weeks. Shower daily. Discharge Attestations Time Spent in Discharge Care*: less than 30 min Quality Metrics Clinical Quality Measures [ No reported AMI, CVA or VTE this stay] Coding Level of Care Code Acute Code for [facility] Fwd Diagnoses Acute appendicitis K35.30 Acute appendicitis type: with localized peritonitis Appendicitis abscess presence: without abscess Appendicitis gangrene presence: without gangrene Appendicitis perforation presence: without perforation
[2022-07-20] MEDS: HYDROcodone-acetaminophen 5-325 mg Tablet 1 TAB PO (13:05)
--- NOTE | 2022-07-20 15:09 | ANE.PACU2 ---
Inpatient post-anesthesia follow up: Airway intact: Yes Vital signs: Temperature 97.6 F Pulse Rate 67 Respiratory Rate 16 Blood Pressure 100/64 Pulse Oximetry 99 Oxygen Delivery Me thod Room Air Oxygen Flow Rate 6 Fraction of Inspir ed Oxygen Hydration adequate: Yes Nausea and vomiting: No Pain level: 3 Mental status: Baseline
== END 2022-07-20 13:34 | disposition home or self-care (01) ==
LOC: ER 10:17 → OR 10:18
PROVIDERS: Emergency Provider Physician Assistant; PCP Family Medicine; Visit Provider Surgery
PROC: 0DTJ4ZZ Resection of Appendix, Percutaneous Endoscopic Approach (ICD-10-PCS; CPT 44970; principal; 2022-07-20 14:30)
DX: K35.30 Acute appendicitis with localized peritonitis, without perforation or gangrene (principal); J44.9 Chronic obstructive pulmonary disease, unspecified; F17.200 Nicotine dependence, unspecified, uncomplicated
CPT/HCPCS: 44970; 74177; 80053; 81001; 83690; 84703; 85025; 88304; J0330; J1100; J1170; J1200; J2250; J2270; J2405; J2543; J2704; J3010; J3490; J7030; Q9967